=== PATIENT | male | born 2000 | race Caucasian/White ===

== ENCOUNTER 2019-05-07 16:04 | Emergency (ER) | payer SELFPAY, OTHER | END 2019-05-07 16:59 | disposition home or self-care (01) | LOC: FTE 16:59 | DX: L30.9 Dermatitis, unspecified (principal); F17.210 Nicotine dependence, cigarettes, uncomplicated | CPT/HCPCS: 99283 ==

== ENCOUNTER 2019-05-09 08:07 | Emergency (ER) | payer MEDICAID ==
[2019-05-09] MEDS: IBUPROFEN 800 MG TAB PO (08:46)
[2019-05-09] MEDS: LIDOCAINE 1% (MDV) 20 ML INJ SC (08:46)
[2019-05-09] MEDS: CEFTRIAXONE 1 GM INJ IM (08:47)
== END 2019-05-09 09:04 | disposition home or self-care (01) ==
LOC: FTE 08:07
DX: H66.003 Acute suppurative otitis media without spontaneous rupture of ear drum, bilateral (principal); L03.211 Cellulitis of face; F17.210 Nicotine dependence, cigarettes, uncomplicated
CPT/HCPCS: 96372; 99284-25